=== PATIENT | female | born 1980 | race Caucasian/White ===

== ENCOUNTER 2018-12-27 19:24 | Emergency (ER) | payer OTHER, BC ==
[2018-12-27] MEDS ORDERED: NAPROXEN 500 MG TAB PO ONE (19:50)
[2018-12-27] MEDS ORDERED: NAPROXEN 500 MG TAB ONE (19:56)
[2018-12-27 20:12] VITALS: BP 145/88; PULSE 88; RESP 18; TEMP 98; O2SAT 98
== END 2018-12-27 20:25 | disposition home or self-care (01) | DRG 605 ==
LOC: ED 19:24
DX: S90.32XA Contusion of left foot, initial encounter (principal); W55.49XA Other contact with pig, initial encounter
CPT/HCPCS: 73630; 99282; 99283; A9270-GY